=== PATIENT | female | born 1950 | race Hispanic/Latino ===

== ENCOUNTER 2017-08-24 07:30 | Day surgery (SDC) | payer MEDICARE, MEDICAID ==
[~2017-08-24 07:30] MED LIST: FLU VACC TS2017-18 (>65YR) 0.5 ML SYRINGE IM ONE
[2017-08-24 08:54] VITALS: BP 126/80; TEMP 97.4; BMI 23.8
--- NOTE | 2017-08-24 09:59 | ULT ---
ULTRASOUND GUIDED FNA RIGHT LOBE THYROID NODULE; INDICATIONS: Enlarging nodule, right lobe of thyroid. FNA is requested by Dr. De. FINDINGS: Four fine needle aspirations were obtained through the nodule in the right lobe of the thyroid with a 25 gauge needle attached to a small syringe. Ultrasound confirmed the needle within the mid porti on of the nodule with each FNA. The specimens were given to the laboratory clerk at the [facility]. Post procedure ultrasound shows increased echogenicity within the nodule, indicating some internal b leeding. No significant hematoma identified. PROCEDURE NOTE: The thyroid again shows a hypoechoic, circumscribed nodule in the right lobe of the thyroid, measuri ng 1.6 x 1.2 x 1 cm. The overlying skin was prepped and draped in a sterile manner. Local anesthes ia was administered with ultrasound guidance, using Lidocaine and bicarbonate. Fine needle aspiration through the nodule, using a 25 gauge needle, was performed under ultrasound g uidance. Ultrasound confirmed needle placement within the thyroid nodule. This was repeated x4. S pecimens were given to the laboratory clerk. The patient tolerated the procedure well. There were no problems or complications. POS: BRITTANY
== END 2017-08-24 08:50 | disposition home or self-care (01) ==
LOC: ULT 07:30
PROVIDERS: ATTEND Otolaryngology Plastic Surgery within the Head & Neck
PROC: 0GBH3ZX Excision of Right Thyroid Gland Lobe, Percutaneous Approach, Diagnostic (ICD-10-PCS; principal; 2017-08-24)
DX: E04.1 Nontoxic single thyroid nodule (principal); K21.9 Gastro-esophageal reflux disease without esophagitis; E78.5 Hyperlipidemia, unspecified; E03.9 Hypothyroidism, unspecified; M19.90 Unspecified osteoarthritis, unspecified site; M81.0 Age-related osteoporosis without current pathological fracture; Z88.5 Allergy status to narcotic agent; Z88.8 Allergy status to other drugs, medicaments and biological substances; Z90.49 Acquired absence of other specified parts of digestive tract
CPT/HCPCS: 10022; 76942; 88173; 88305

== ENCOUNTER 2017-11-13 12:46 | Outpatient (CLI) | payer MEDICARE, MEDICAID ==
--- NOTE | 2017-11-13 14:27 | RAD ---
THREE VIEW LUMBAR SPINE SERIES: Comparison: 03-30-08 Clinical history: Lumbago with sciatica, left sided. FINDINGS: There is grade I spondylolisthesis at the level of L5-S1. Obliteration of L5-S1 disc space is present . The vertebral body heights are maintained within the lumbar spine. IMPRESSION: Degenerative change of the lumbar spine with grade I spondylolisthesis at L5-S1. POS: LAUREN
== END 2017-11-13 12:47 | disposition home or self-care (01) ==
LOC: RAD 12:46
PROVIDERS: ATTEND Family Medicine
DX: M54.42 Lumbago with sciatica, left side (principal); M47.896 Other spondylosis, lumbar region; M43.17 Spondylolisthesis, lumbosacral region; R53.82 Chronic fatigue, unspecified
CPT/HCPCS: 36415; 72100; 82607; 82746; 85025

== ENCOUNTER 2018-03-09 12:20 | Outpatient (CLI) | payer MEDICARE, MEDICAID | END 2018-03-09 12:21 | disposition home or self-care (01) | LOC: BICRAD 12:20 | PROVIDERS: ATTEND Family Medicine | DX: J01.10 Acute frontal sinusitis, unspecified (principal) | CPT/HCPCS: 71046 ==

== ENCOUNTER 2018-07-30 10:20 | Outpatient (CLI) | payer MEDICARE, MEDICAID | END 2018-07-30 10:21 | disposition home or self-care (01) | LOC: BICMAMMO 10:20 | PROVIDERS: ATTEND Family Medicine | DX: Z12.31 Encounter for screening mammogram for malignant neoplasm of breast (principal) | CPT/HCPCS: 77063; 77067 ==

== ENCOUNTER 2018-09-21 13:20 | Outpatient (CLI) | payer MEDICARE, MEDICAID ==
--- NOTE | 2018-09-21 15:28 | ULT ---
THYROID ULTRASOUND: Comparison: 07-16-17 History: Thyroid nodule. Technique: Multiplanar grayscale and color doppler images were obtained in a thyroid ultrasound. FINDINGS: There is a hypoechoic well circumscribed solid nodule in the right thyroid lobe measuring 1.6 x 1.2 x 1.2 cm in size. This is stable compared to the prior examination. No suspicious calcifications are s een within this nodule. The thyroid lobes measure 3.0 and 2.4 cm in length on the right and left, res pectively. IMPRESSION: Stable right thyroid nodule. POS: LAUREN
== END 2018-09-21 13:21 | disposition home or self-care (01) ==
LOC: SCSULT 13:20
PROVIDERS: ATTEND Otolaryngology Plastic Surgery within the Head & Neck
DX: E04.1 Nontoxic single thyroid nodule (principal)
CPT/HCPCS: 76536

== ENCOUNTER 2018-12-23 10:09 | Outpatient (CLI) | payer MEDICARE, MEDICAID ==
--- NOTE | 2018-12-23 12:34 | BD ---
BONE DENSITOMETRY USING DEXA: HISTORY: Postmenopausal screening for osteoporosis. FINDINGS: Lumbar Spine: BMD (g/cm2) L1 0.802 T-Score: -1.7 Z-Score: 0.0 L2 0.906 T-Score: -1.1 Z-Score: 0.8 L3 0.841 T-Score: -2.2 Z-Score: -0.2 L4 0.883 T-Score: -1.6 Z-Score: 0.5 L1-L4 0.860 T-Score: -1.7 Z-Score: 0.3 Femoral Neck: 0.610 T-Score: -2.2 Z-Score: -0.5 Total Femur: 0.755 T-Score: -1.5 Z-Score: -0.1 Impression: Osteopenia. POS: [facility]
== END 2018-12-23 10:10 | disposition home or self-care (01) ==
LOC: BICMAMMO 10:09
PROVIDERS: ATTEND Family Medicine
DX: M81.0 Age-related osteoporosis without current pathological fracture (principal); M85.89 Other specified disorders of bone density and structure, multiple sites
CPT/HCPCS: 77080

== ENCOUNTER 2019-04-20 09:52 | Outpatient (CLI) | payer MEDICARE, MEDICAID ==
--- NOTE | 2019-04-20 10:23 | ULT ---
THYROID ULTRASOUND: DATE: 04/20/2019 COMPARISON: 09/21/2018 and 07/16/2017. HISTORY: Reevaluate thyroid nodules. TECHNIQUE: Multiplanar grayscale sonographic imaging of the thyroid gland obtained. FINDINGS: The thyroid isthmus measures 1-2 mm in AP dimension. The left lobe measures 2.4 x 0.7 x 0.6 cm and th e right lobe measures 1.1 x 2.9 x 1.4 cm. There is no thyroid nodule seen within the left lobe or the thyroid isthmus. There is a solid hypoechoic nodule within the inferior aspect of the right lobe of the thyroid gland measuring 8 x 8 x 6 mm. There is a dominant heterogeneous hypoechoic solid mass within the mid portion of the right lobe of the thyroid gland measuring 1.7 x 1.1 x 1.3 cm. When compared to the exam, the dominant right thyroid nodule measured 1.7 x 1.2 x 1 cm, not significantly changed. In addition, this nodule underwent image guided biopsy in 2017. The solid inferior right thyroid nodule also appears stable. IMPRESSION: Stable solid nodules within the right lobe of the thyroid gland. Transcribed Date/Time: 04/20/2019 10:56 AM
== END 2019-04-20 09:53 | disposition home or self-care (01) ==
LOC: SCSULT 09:52
PROVIDERS: ATTEND Otolaryngology Plastic Surgery within the Head & Neck
DX: E04.2 Nontoxic multinodular goiter (principal)
CPT/HCPCS: 76536

== ENCOUNTER 2020-01-17 07:46 | Outpatient (CLI) | payer MEDICARE, MEDICAID ==
[2020-01-17 13:20] LABS: #Eosinphils 0.2 thou/uL (0.0-0.7); #Lymphocytes 2.5 thou/uL (1.20-3.40); #Monocytes 0.6 thou/uL (0.11-0.59); #Neutrophils 4.6 thou/uL (1.40-6.50); %Basophils 0.5 % (0.0-1.0); %Eosinophils 2.1 % (0.0-10.0); %Lymphocytes 32.2 % (21.0-51.0); %Monocytes 7.5 % (0.0-10.0); %Neutrophils 57.8 % (42.0-75.0); Mean Corpuscular HGB CONC 33.8 g/dL (32.0-36.0); Mean Corpuscular Hemoglobin 31.1 pg (27.0-31.0); Mean Corpuscular Volume 91.9 fL (78.0-98.0); Mean Platelet Volume 9.3 fL (7.4-10.4); Platelet Count 226 thou/uL (130-400); Red Blood Cell (RBC) Count 4.49 mill/uL (4.20-5.40); White Blood Cell (WBC) Count 7.9 thou/uL (4.8-10.8)
--- NOTE | 2020-01-17 13:46 | RAD ---
XR Chest Pa Lat STANDARD History: Preop evaluation Comparison: None. Findings: Lungs are clear aside from scar or mild atelectatic changes left lung base. No pneumothorax . No effusion. Cardiac silhouette and mediastinal contours are within normal limits. Impression: Scar/atelectasis left lung base. No acute intrathoracic abnormality.
[2020-01-17 13:51] LABS: Anion Gap 14 mmol/L (10-20); BUN (Urea Nitrogen) 19 mg/dL (9.8-20.1); Calc. Creatinine Clearance 0 mL/min (70-130); Calcium 9.5 mg/dL (7.8-10.44); Carbon Dioxide 20 mmol/L (23-31); Chloride 110 mmol/L (98-107); Estimated GFR-MDRD 66; Glucose 94 mg/dL (80-115); Sodium 140 mmol/L (136-145)
== END 2020-01-17 07:47 | disposition home or self-care (01) ==
LOC: LABBT 07:46
PROVIDERS: ATTEND Specialist
DX: Z01.818 Encounter for other preprocedural examination (principal); K64.8 Other hemorrhoids
CPT/HCPCS: 71046; 80048; 85025; 93005; 93010

== ENCOUNTER 2020-01-19 09:49 | Day surgery (SDC) | payer MEDICARE, MEDICAID ==
[2020-01-17 12:52] VITALS: BMI 24.5
[~2020-01-19 09:49] MED LIST changes: +Dexamethasone 20 MG/5 ML VIAL ONE; +EPHEDRINE 25 MG/5 ML SYRINGE ONE; -FLU VACC TS2017-18 (>65YR) 0.5 ML SYRINGE IM ONE; +Lidocaine 1% PF 5 ML VIAL ONE; +Ondansetron PF 4 MG/2 ML Vial ONE; +PROPOFOL 200 MG/20 ML VIAL ONE; +Succinylcholine Chloride 20 MG/ML 10 ml SYRINGE FS ONE
[2020-01-19] MEDS ORDERED: Ketorolac Tromethamine 30 MG/ML VIAL ONE (10:56)
[2020-01-19] MEDS ORDERED: Acetaminophen 500 MG TAB ONE (10:56)
[2020-01-19] MEDS ORDERED: Lidocaine 2% Jelly 5 ML TUBE ONE (13:33)
[2020-01-19] MEDS ORDERED: Lidocaine 1% w/Epinephrine 1:100K 20 ML VIAL ONE (13:33)
[2020-01-19] MEDS ORDERED: Bupivacaine 0.25% HCL 30 ML VIAL ONE (13:33)
[2020-01-19] MEDS ORDERED: Fentanyl 100 MCG/2 ML VIAL ONE ×4 (13:40→15:46)
[2020-01-19] MEDS ORDERED: Promethazine HCl 25 MG/ML VIAL ONE (17:04)
--- NOTE | 2020-01-20 10:32 | OP ---
DATE OF PROCEDURE: 01/19/2020 PREOPERATIVE DIAGNOSIS: Bleeding and symptomatic internal hemorrhoids. POSTOPERATIVE DIAGNOSIS: Bleeding and symptomatic internal hemorrhoids. PROCEDURE PERFORMED: PPH stapled hemorrhoidectomy. ANESTHESIA: General endotracheal. INDICATIONS: The patient is a 69-year-old female. She presents with symptoms referable to her hemorrhoids and visualized prolapsing hemorrhoids. She was taken to the operating at this time for stapled hemorrhoidectomy as I believe this will afford her excellent opportunity at treating the hemorrhoids from a symptomatic standpoint. DESCRIPTION OF OPERATION: Informed consent was obtained. The patient was taken to the operating room, where general endotracheal anesthesia obtained, patient in supine position. She was rolled over into prone stefan-knife position. Buttocks were taped apart. Perianal area was prepped with Betadine and draped in sterile fashion. Local anesthetic was infiltrated in a 4-quadrant intersphincteric fashion using Marcaine mixed with lidocaine with epinephrine. Digital examination was performed followed by anal dilatation. The anal retractor was placed within the canal and sutured in place with 2-0 Vicryl sutures. The partial obturator was used to place a pursestring suture of 2-0 Prolene several centimeter proximal to the dentate line. The stapler was obtained and maximally opened and the anvil was positioned above the pursestring suture. The suture was then secured around the post of the stapler and the tails of the suture withdrawn through the lateral openings of the stapler. With traction on the suture line, the stapler was maximally closed. The staple was fired and subsequently removed. The staple line was inspected and found to be intact and essentially hemostatic. The specimen was examined and found to be of appropriate width and thickness. The suture line was oversewn with several interrupted 3-0 Vicryl sutures. Avitene was placed within the anal canal and dry gauze and mesh pants placed externally. There were no complications. The patient tolerated the procedure well and was taken to recovery room in stable condition. Job ID: [id number]
== END 2020-01-19 19:47 | disposition home or self-care (01) ==
LOC: SDC 09:49
PROVIDERS: ATTEND Specialist
PROC: 06BY0ZC Excision of Hemorrhoidal Plexus, Open Approach (ICD-10-PCS; principal; 2020-01-19)
DX: K64.8 Other hemorrhoids (principal); E03.9 Hypothyroidism, unspecified; F41.9 Anxiety disorder, unspecified; Z79.899 Other long term (current) drug therapy; Z90.49 Acquired absence of other specified parts of digestive tract; Z98.890 Other specified postprocedural states; Z88.5 Allergy status to narcotic agent
CPT/HCPCS: J0694; J1100; J1885; J2001; J2405; J2550; J2704; J3010; S0020

== ENCOUNTER → 2020-04-05 | Day surgery (SDC) | payer MEDICARE, MEDICAID | LOC: ENDO/OP 07:40 | PROVIDERS: ATTEND Internal Medicine Gastroenterology | DX: K21.9 Gastro-esophageal reflux disease without esophagitis (principal); E89.0 Postprocedural hypothyroidism; M81.0 Age-related osteoporosis without current pathological fracture; J30.9 Allergic rhinitis, unspecified; F41.9 Anxiety disorder, unspecified; M19.90 Unspecified osteoarthritis, unspecified site; J32.9 Chronic sinusitis, unspecified; Z53.29 Procedure and treatment not carried out because of patient's decision for other reasons; Z79.899 Other long term (current) drug therapy; Z88.5 Allergy status to narcotic agent; Z88.6 Allergy status to analgesic agent; Z88.8 Allergy status to other drugs, medicaments and biological substances; Z91.011 Allergy to milk products | CPT/HCPCS: 91034 ==

== ENCOUNTER 2020-09-06 14:24 | Outpatient (CLI) | payer MEDICARE, MEDICAID ==
--- NOTE | 2020-09-06 16:36 | RAD ---
XR Shoulder Lt 3 View STANDARD HISTORY: Left shoulder pain FINDINGS: No fracture or dislocation is identified. There are degenerative changes in the AC joint.
--- NOTE | 2020-09-06 17:38 | RAD ---
CERVICAL SPINE RADIOGRAPHS FOUR VIEWS: 09/06/20 PROVIDED CLINICAL HISTORY: Cervicalgia. Cervical alignment appears normal. Vertebral body heights appear preserved. No evidence for fracture. Disc space narrowing and end plate degenerative changes are seen at C5-6 and C6-7 associated uncinat e process hypertrophy. There is no prevertebral soft tissue swelling apparent. The visualized lung ap ices appear clear. IMPRESSION: Cervical degenerative change. POS: [facility]
== END 2020-09-06 14:25 | disposition home or self-care (01) ==
LOC: BICRAD 14:24
PROVIDERS: ATTEND Family Medicine
DX: M54.2 Cervicalgia (principal); M25.512 Pain in left shoulder; M47.812 Spondylosis without myelopathy or radiculopathy, cervical region; M19.012 Primary osteoarthritis, left shoulder
CPT/HCPCS: 72040

== ENCOUNTER 2021-07-22 12:57 | Outpatient (CLI) | payer MEDICARE, MEDICAID | END 2021-07-22 12:58 | disposition home or self-care (01) | LOC: SCSMRI 12:57 | PROVIDERS: ATTEND Family Medicine | DX: M47.16 Other spondylosis with myelopathy, lumbar region (principal); M48.061 Spinal stenosis, lumbar region without neurogenic claudication; M43.17 Spondylolisthesis, lumbosacral region | CPT/HCPCS: 72148 ==

== ENCOUNTER 2022-10-07 19:30 | Outpatient (CLI) | payer MEDICAID, OTHER | END 2022-10-07 19:31 | disposition home or self-care (01) | LOC: SLEEPLAB 19:30 | PROVIDERS: ATTEND Internal Medicine Cardiovascular Disease | DX: G47.33 Obstructive sleep apnea (adult) (pediatric) (principal); R53.83 Other fatigue; R09.89 Other specified symptoms and signs involving the circulatory and respiratory systems; R06.83 Snoring; G47.10 Hypersomnia, unspecified; R06.02 Shortness of breath; G47.00 Insomnia, unspecified | CPT/HCPCS: 95810 ==